=== PATIENT | male | born 1995 | race Caucasian/White ===

== ENCOUNTER 2019-07-02 11:29 | Emergency (ER) | payer OTHER, SELFPAY ==
[2019-07-02 11:30] VITALS: BP 131/64; PULSE 82; RESP 16; TEMP 36.8; O2SAT 100; BMI 24.3
--- NOTE | 2019-07-02 11:47 | ED.VIS.GEN ---
History of Present Illness Chief Complaint: Sore Throat Detail of Chief Complaint: Fever Informant: Patient, Family Onset: Yesterday Current Severity: Moderate Maximum Severity: Moderate Narrative: Patient presents with sore throat and fever that started yesterday morning. He denies other URI symptoms. No cough. Fever was up to 102. He took Tylenol approximate hour before arrival. He has not had difficulty swallowing. Past Medical History - Allergies and Home Meds Allergies/Adverse Reactions: Allergies No Known Allergies Allergy (Verified 07/02/19 11:34) Primary Care Physician: Ronnie Mcdaniel III, MD [Primary Care Provider] - Prior records reviewed: Yes Past Medical History: - - Reviewed Lives: With Family Smoking Status: Current some day smoker Review of Systems General: Reports: Fever Eyes: Denies: Visual changes - bilaterally ENT: Reports: Sore throat. Denies: Bilateral ear pain Cardiovascular: Denies: Chest pain Respiratory: Denies: Dyspnea, Cough Gastrointestinal: Denies: Abdominal pain, Nausea, Vomiting, Diarrhea Genitourinary: Denies: Dysuria Musculoskeletal: Denies: Neck pain, Back pain Skin: Denies: Rash Neurological: Denies: Headache Hematologic: Denies: Easy bruising Allergy: Denies: Uticaria Physical Exam Vital Signs/Narrative: Vital Signs Temp Pulse Resp BP Pulse Ox 07/02/19 11:30 98.3 F 82 16 131/64 H 100 Inital Vital Signs reviewed: Yes General: Well nourished, Well developed, - - Patient resting with head of bed elevated approximately 45 degrees. He is tolerating secretions well and speaks with a strong voice. Eyes: Perrl, EOMI ENT: Moist mucous membranes, TM's clear, - - 3+ bilateral tonsils with erythema and bilateral exudates. Uvula is midline. Neck: Supple, - - Mild bilateral anterior cervical lymphadenopathy. Cardiovascular: Regular rate, Regular rhythm Respiratory: No distress, CTA bilaterally Abdomen: Soft, Nontender Extremities: Nontender Skin: Normal color Neurological: Alert, Oriented x3 Psychological: Normal affect Diagnostic/Tx/Re-eval - Medical Decision Making Clinically patient symptoms are consistent with strep pharyngitis. He will be given oral antibiotics, first dose given here. ED Disposition - Plan for ED Patient: Disposition: Home or Assisted Living Diagnosis: Strep pharyngitis Instructions: PHARYNGITIS, Strep (Presumed) Prescriptions: Amoxicillin 875 mg PO BID #20 tablet Referrals: Ronnie Mcdaniel III, MD [Primary Care Provider] - 1 Week
[2019-07-02] MEDS: AMOXICILLIN 500 MG CAPSULE 1000 MG PO (11:56)
== END 2019-07-02 12:12 | disposition home or self-care (01) ==
LOC: ED 12:04
PROVIDERS: Emergency Provider Emergency Medicine; Family Provider Family Medicine; PCP Family Medicine
DX: J02.0 Streptococcal pharyngitis (principal); F17.200 Nicotine dependence, unspecified, uncomplicated
CPT/HCPCS: 99282